=== PATIENT | female | born 1970 | race Two or more races ===

== ENCOUNTER 2024-10-22 08:50 | Emergency (ER) | payer OTHER ==
[~2024-10-22] VITALS: Ht 162.6 cm; Wt 68.9 kg
[2024-10-22] MEDS ORDERED: NORVASC2.5 M1 PO (09:08)
[2024-10-22] MEDS ORDERED: TOPROL XL25 M1 PO (09:08)
[2024-10-22] MEDS ORDERED: KETOROLAC TROMETHAMINE 60 MG VIAL IM ONE ×2 (10:45→10:53)
[2024-10-22] MEDS ORDERED: 0.9 % SODIUM CHLORIDE 1,000 ML IV ONE (11:00)
[2024-10-22 11:50] LABS: HEMATOCRIT 41.1 % (36.0-45.00); HEMOGLOBIN 14.1 g/dL (12.0-15.00); MEAN CELL VOLUME 93.5 fL (80.00-100.00); MEAN CORPUSCULAR HEMOGLOBIN 32.1 pg (27.00-32.0); MEAN CORPUSCULAR HGB CONC 34.4 g/dl (32.0-36.0); PLATELET COUNT 371 K/uL (150-450); RED BLOOD COUNT 4.39 M/uL (4.00-6.00); RED CELL DISTRIBUTION WIDTH 12.5 % (11.5-14.5)
[2024-10-22 11:54] LABS: PARTIAL THROMBOPLASTIN TIME 29.3 SECONDS (22.0-34.0); PROTHROMBIN TIME 10.9 SECONDS (9.0-11.5)
[2024-10-22 12:34] LABS: ALBUMIN 3.7 gm/dL (3.4-5.0); BILIRUBIN TOTAL 0.6 mg/dL (0.3-1.2); CALCIUM 9.9 mg/dL (8.5-10.1); CREATININE SERUM 0.81 mg/dL (0.55-1.02); GFR 74.25; GLOBULINA 4.4 G/DL (2.4-3.5); POTASSIUM 3.82 mEq/L (3.5-5.1); TOTAL PROTEIN 8.1 gm/dL (6.4-8.2)
[2024-10-22 13:33] LABS: PH,URINE 6.5 (5.0-8.0); URINE APPEARANCE Clear; URINE BILIRRUBIN Negative (NEGATIVE); URINE BLOOD Moderate; URINE COLOR Yellow; URINE GLUCOSE Negative (NEGATIVE); URINE KETONE Negative (NEGATIVE); URINE LEUKOCYTE Trace; URINE NITRATE Negative; URINE PROTEIN Negative (NEGATIVE); URINE UROBILINOGEN 0.2 E.U./dl
[2024-10-22 13:35] LABS: URINE BACTERIA 2954.5 uL (0.0-1933); URINE EPITHELIAL CELLS 46.5 uL (0.0-38.8); URINE RBC 242.3 uL (0.0-20.8); URINE WBC 35.1 uL (0.0-23.2)
[2024-10-22 13:39] LABS: URINE CAST 0.14 uL (0.0-1.40)
[2024-10-22] MEDS ORDERED: CIPRO500 MG PO (15:11)
[2024-10-22] MEDS ORDERED: PEPCID AC20 MG PO (15:11)
== END 2024-10-22 15:41 | disposition home or self-care (01) ==
LOC: ER 08:52
PROVIDERS: General Practice
DX: R10.9 Unspecified abdominal pain (principal); I10 Essential (primary) hypertension
CPT/HCPCS: 36415; 74177; Q9965